=== PATIENT | female | born 2000 | race Caucasian/White ===

== ENCOUNTER 2018-12-21 19:45 | Emergency (ER) | payer SELFPAY ==
[2018-12-21 23:44] LABS: ABSOLUTE BASOPHILS # (AUTO) 0.1 10^3/uL (0.0-0.2); ABSOLUTE EOSINOPHILS # (AUTO) 0.1 10^3/uL (0.0-0.6); ABSOLUTE MONOCYTES (AUTO) 0.7 10^3/uL (0.1-1.4); ABSOLUTE NEUT (AUTO) 5.8 10^3/uL (1.7-8.2); BASOPHILS % (AUTO) 0.9 % (0-2); EOSINOPHILS % (AUTO) 1.3 % (0-6); HEMATOCRIT 40.3 % (36.0-47.0); LYMPHOCYTES % (AUTO) 22.8 % (13-45); MEAN CORPUSCULAR HEMOGLOBIN 29.7 pg (27.0-33.4); MEAN CORPUSCULAR HGB CONC 34.7 g/dL (32.0-36.0); MEAN CORPUSCULAR VOLUME 86 fl (80-97); MONOCYTES % (AUTO) 7.7 % (3-13); PLATELET COUNT 214 10^3/uL (150-450); RED BLOOD COUNT 4.71 10^6/uL (3.72-5.28); RED CELL DISTRIBUTION WIDTH 13.3 % (11.5-14.0); SEGMENTED NEUTROPHILS % (AUTO) 67.3 % (42-78); TOTAL CELLS COUNTED % (AUTO) 100 %; WHITE BLOOD COUNT 8.6 10^3/uL (4.0-10.5)
[2018-12-22] LABS: APPEARANCE,URINE CLEAR; BILIRUBIN,URINE NEGATIVE (NEGATIVE); COLOR,URINE COLORLESS; GLUCOSE, URINE NEGATIVE (NEGATIVE); KETONES,URINE NEGATIVE (NEGATIVE); LEUKOCYTE ESTERASE,URINE NEGATIVE (NEGATIVE); NITRITE,URINE NEGATIVE (NEGATIVE); PROTEIN,URINE NEGATIVE (NEGATIVE); URINE SPECIFIC GRAVITY 1.001; UROBILINOGEN,URINE NEGATIVE mg/dL (<2.0)
[2018-12-22 00:04] LABS: ALANINE AMINOTRANSFERASE 25 U/L (9-52); ALKALINE PHOSPHATASE 71 U/L (38-126); ANION GAP 13 (5-19); ASPARTATE AMINO TRANSFERASE 24 U/L (14-36); BILIRUBIN,DIRECT 0.2 mg/dL (0.0-0.4); BILIRUBIN,TOTAL 0.7 mg/dL (0.2-1.3); BLOOD UREA NITROGEN 8 mg/dL (7-20); CALCIUM 9.9 mg/dL (8.4-10.2); CARBON DIOXIDE 27 mmol/L (22-30); CHLORIDE 101 mmol/L (98-107); GLUCOSE 104 mg/dL (75-110); LIPASE 72.6 U/L (23-300); POTASSIUM 3.9 mmol/L (3.6-5.0); SODIUM 140.8 mmol/L (137-145); TOTAL PROTEIN 8.1 g/dL (6.3-8.2)
[2018-12-22] MEDS ORDERED: KETOROLAC TROMETHAMINE INJ/PF 30 MG/1 ML SDV IV ONE (02:05)
--- NOTE | 2018-12-22 02:05 | ER Document Report ---
ED GI/ - General Chief Complaint: Abdominal Pain/dizzy Stated Complaint: LEFT SIDE PAIN,DIZZYNESS Time Seen by Provider: 12/22/18 01:19 Notes: 18-year-old female with 1 day history of left-sided abdominal pain. Intermittent fever. No vaginal discharge. Sometimes the pain radiates to the left flank. Not vomiting at this time. No diarrhea. No significant lower pelvic pain. Denies any vaginal discharge or vaginal bleeding. TRAVEL OUTSIDE OF THE [place] IN LAST 30 DAYS: No - HPI Patient complains to provider of: Abdominal pain, Flank pain Onset: This morning Timing/Duration: Gradual Quality of pain: Achy Severity at maximum: Moderate Severity in ED: Moderate Location: LUQ, LLQ Vaginal bleeding (Compared to normal period): None Sexual history: Active Associated symptoms: None - Related Data Allergies/Adverse Reactions: No Known Allergies Allergy (Unverified 12/21/18 19:48) Past Medical History - General Information source: Patient - Social History Smoking Status: Never Smoker Frequency of alcohol use: None Drug Abuse: None Lives with: Spouse/Significant other Family History: Reviewed & Not Pertinent - Medical History Medical History: Negative Review of Systems - Review of Systems Notes: Constitutional: denies: Chills, Diaphoresis, Fever, Malaise, Weakness EENT: denies: Eye discharge, Blurred vision, Tearing, Double vision, Nose congestion, Nose discharge, Throat swelling, Mouth pain Cardiovascular: denies: Palpitations, Heart racing, Orthopnea, Dyspnea, Chest pain Respiratory: denies: Cough, Hurts to breathe, Wheezing, Shortness of breath Gastrointestinal: denies: Diarrhea, Nausea, Vomiting, Black stools, bright red blood in stool. Positive for abdominal pain Genitourinary: denies: Burning, Dysuria, Discharge, Frequency, Flank pain, Hematuria Musculoskeletal: denies: Joint pain, Joint swelling, Muscle pain, Muscle stiffness, back pain Hematologic/Lymphatic: denies: Anemia, Easy bleeding, Easy bruising, Blood clots Neurological/Psychological: denies: Confusion, Dementia, Depression, Loss of consciousness Skin: No lesions, no masses, no skin breakdown, no abscesses Physical Exam - Vital signs Vitals: Temp Pulse Resp BP Pulse Ox 99.9 F 89 18 108/72 99 12/21/18 19:57 12/21/18 19:57 12/21/18 19:57 12/21/18 19:57 12/21/18 19:57 Interpretation: Normal - General General appearance: Appears well, Alert - HEENT Head: Normocephalic, Atraumatic Eyes: Normal Pupils: PERRL - Respiratory Respiratory status: No respiratory distress Chest status: Nontender Breath sounds: Normal Chest palpation: Normal - Cardiovascular Rhythm: Regular Heart sounds: Normal auscultation Murmur: No - Abdominal Inspection: Normal Distension: No distension Bowel sounds: Normal Tenderness: Tender - Mild tenderness to palpation in the left upper and left lateral quadrant. No guarding or rebound. No periumbilical tenderness. No Tapia sign. No pain in McBurney's point. Organomegaly: No organomegaly - Genitourinary External exam: Normal. No: Vesicles Speculum exam: Normal Vaginal bleeding: None Bimanuel exam: Normal. No: Cervical motion tender, Adnexal mass, Adnexal tenderness, Uterus enlarged - Back Back: Normal, Nontender - Extremities General upper extremity: Normal inspection, Nontender, Normal color, Normal ROM, Normal temperature General lower extremity: Normal inspection, Nontender, Normal color, Normal ROM, Normal temperature, Normal weight bearing. No: Marla's sign - Neurological Neuro grossly intact: Yes Cognition: Normal Orientation: AAOx4 [place] Coma Scale Eye Opening: Spontaneous Armond Coma Scale Verbal: Oriented Armond Coma Scale Motor: Obeys Commands Armond Coma Scale Total: 15 Speech: Normal Motor strength normal: LUE, RUE, LLE, RLE Sensory: Normal - Psychological Associated symptoms: Normal affect, Normal mood - Skin Skin Temperature: Warm Skin Moisture: Dry Skin Color: Normal Course - Re-evaluation Re-evalutation: 12/22/18 03:24 Laboratory 12/21/18 12/21/18 12/21/18 23:18 23:25 23:25 WBC 8.6 RBC 4.71 Hgb 14.0 Hct 40.3 MCV 86 MCH 29.7 MCHC 34.7 RDW 13.3 Plt Count 214 Seg Neutrophils % 67.3 Lymphocytes % 22.8 Monocytes % 7.7 Eosinophils % 1.3 Basophils % 0.9 Absolute Neutrophils 5.8 Absolute Lymphocytes 2.0 Absolute Monocytes 0.7 Absolute Eosinophils 0.1 Absolute Basophils 0.1 Sodium 140.8 Potassium 3.9 Chloride 101 Carbon Dioxide 27 Anion Gap 13 BUN 8 Creatinine 0.64 Est GFR ( Amer) > 60 Est GFR (Non-Af Amer) > 60 Glucose 104 Calcium 9.9 Total Bilirubin 0.7 Direct Bilirubin 0.2 Neonat Total Bilirubin Not Reportable Neonat Direct Bilirubin Not Reportable Neonat Indirect Bili Not Reportable AST 24 ALT 25 Alkaline Phosphatase 71 Total Protein 8.1 Albumin 5.0 Lipase 72.6 Urine Color COLORLESS Urine Appearance CLEAR Urine pH 7.0 Ur Specific [place] 1.001 Urine Protein NEGATIVE Urine Glucose (UA) NEGATIVE Urine Ketones NEGATIVE Urine Blood SMALL H Urine Nitrite NEGATIVE Urine Bilirubin NEGATIVE Urine Urobilinogen NEGATIVE Ur Leukocyte Esterase NEGATIVE Urine WBC (Auto) 0 Urine RBC (Auto) 2 Urine Bacteria (Auto) TRACE Squamous Epi Cells Auto 3 Urine Ascorbic Acid NEGATIVE Urine HCG, Qual NEGATIVE 12/22/18 03:24 Well-appearing female in no significant distress. Fairly unremarkable pelvic exam and labs. Wet prep, GC and Chlamydia sent off but unlikely this represents PID as her pelvic exam looks fairly unremarkable. We will give her strict follow-up instructions about 24-hour follow-up as this could be an early appendicitis. Patient seems reasonable and compliant. We will discharge her at this time in stable condition. 12/22/18 06:21 - Vital Signs Vital signs: Temp Pulse Resp BP Pulse Ox 98.8 F 84 20 104/55 L 98 12/22/18 03:50 12/22/18 03:50 12/22/18 03:50 12/22/18 03:50 12/22/18 03:50 - Laboratory Result Diagrams: 12/21/18 23:25 12/21/18 23:25 Laboratory results interpreted by me: 12/21/18 23:18 Urine Blood SMALL H Discharge - Discharge Clinical Impression: Left sided abdominal pain Condition: Good Disposition: HOME, SELF-CARE Instructions: Observation for Appendicitis ([facility]) Additional Instructions: Nothing was seen that was significantly abnormal today. In the event that your symptoms are getting worse over the next 12-24 hours she should return immediat atiya. Times appendicitis can present like this and it takes close follow-up to make sure we are not missing something. You may take ibuprofen or Tylenol as instructed for pain. Prescriptions: Ibuprofen [Motrin 800 mg Tablet] 800 mg PO Q8H PRN 10 Days #30 tab PRN Reason: For Pain Scale 3-4 Forms: Return to Work
[2018-12-22 04:09] VITALS: BP 104/55
[2018-12-22 06:10] LABS: BACTERIA (WET MOUNT) 4+ BACTERIA SEEN; EPITHELIALS (WET MOUNT) 4+ EPITHELIALS SEEN; WBCS (WET MOUNT) 1+ WBCS SEEN
--- NOTE | 2018-12-23 21:02 | ER Document Report ---
Doctor's Note Notes: 12/23/18 20:56 Follow up phone call performed as it appeared that lab cancelled the GC/Ch probe from initial visit. Patient seen yesterday and treated by another provider and dx with "constipation". During f/u conversation at 1929 on 12/23 pt still reports pain in LLQ and felt a "pop" today with more pain. I have advised that she should return to the ED for repeat evaluation for dirty urine DNA probe for gc/chl and/or repeat pelvic exam and likely will need a more advanced imaging study such as pelvic U/S or CT. I have notified charge nurse at 1939 on 12/23 and have requested expedited work up if/when patient returns
== END 2018-12-22 03:50 | disposition home or self-care (01) ==
LOC: ER 19:45
DX: R10.9 Unspecified abdominal pain (principal); R42 Dizziness and giddiness; R50.9 Fever, unspecified
CPT/HCPCS: 99284; 96374; 36415; 87210; 83690; 85025; 81025; 80053; 81001; J1885

== ENCOUNTER 2018-12-22 16:13 | Emergency (ER) | payer SELFPAY ==
[2018-12-22] MEDS ORDERED: FENTANYL CITRATE INJ/PF 100 MCG/2 ML AMPUL IM ONE (16:24)
--- NOTE | 2018-12-22 16:26 | ER Document Report ---
ED Medical Screen (RME) - General Chief Complaint: Abdominal Pain Stated Complaint: ABDOMINAL PAIN Time Seen by Provider: 12/22/18 16:24 Mode of Arrival: Ambulatory Information source: Patient Notes: Chief complaint: abdominal pain: History of complain:( obtained from----patient) 18 years old female presents today with diffuse abdominal pain more so in the right lower quadrant and left lower quadrant. She was seen here yesterday and evaluated and discharged home. She presents again. No fever chills or vomiting. Denies any dysuria frequency. Yesterday's white count was normal as well as urine was normal. Urine was negative. She has periodic constipations with irregular bowel movement. Onset: Gradual Duration: Last few days Severity: Moderate crampy Quality: Crampy Context: Abdomen Exacerbating factor and relieving factors: REVIEW OF SYSTEMS: CONSTITUTIONAL : Denies fever, chills, or sweats. Denies recent illness. EENT: Denies eye, ear, throat, or mouth pain or symptoms. Denies nasal or sinus congestion or discharge. Denies throat, tongue, or mouth swelling or difficulty swallowing. CARDIOVASCULAR: Denies chest pain. Denies palpitations or racing or irregular heart beat. Denies ankle edema. RESPIRATORY: Denies cough, cold, or chest congestion. Denies shortness of breath, difficulty breathing, or wheezing. GASTROINTESTINAL: Denies distention. Denies nausea, vomiting, or diarrhea. Denies blood in vomitus, stools, or per rectum. Denies black, tarry stools. Denies constipation. GENITOURINARY: Denies difficulty urinating, painful urination, burning, frequency, blood in urine, or discharge. FEMALE GENITOURINARY: Denies vaginal bleeding, heavy or abnormal periods, irregular periods. Denies vaginal discharge or odor. MUSCULOSKELETAL: Denies back or neck pain or stiffness. Denies joint pain or swelling. SKIN: Denies rash, lesions or sores. HEMATOLOGIC : Denies easy bruising or bleeding. LYMPHATIC: Denies swollen, enlarged glands. NEUROLOGICAL: Denies confusion or altered mental status. Denies passing out or loss of consciousness. Denies dizziness or lightheadedness. Denies headache. Denies weakness or paralysis or loss of use of either side. Denies problems with gait or speech. Denies sensory loss, numbness, or tingling. Denies seizures. PSYCHIATRIC: Denies anxiety or stress. Denies depression, suicidal ideation, or homicidal ideation. ALL OTHER SYSTEMS REVIEWED AND NEGATIVE. PHYSICAL EXAMINATION: GENERAL: Well-appearing, well-nourished and in no acute distress. HEAD: Atraumatic, normocephalic. EYES: Pupils equal round and reactive to light, extraocular movements intact, conjunctiva are normal. ENT: Nares patent, oropharynx clear without exudates. Moist mucous membranes. NECK: Normal range of motion, supple without lymphadenopathy LUNGS: Breath sounds clear to auscultation bilaterally and equal. No wheezes rales or rhonchi. HEART: Regular rate and rhythm without murmurs ABDOMEN: Soft, diffuse abdominal tenderness noted. No rebound tenderness or guarding, nondistended abdomen. No guarding, no rebound. No masses appreciated. Female : deferred Musculoskeletal: Normal range of motion, no pitting or edema. No cyanosis. NEUROLOGICAL: Cranial nerves grossly intact. Normal speech, normal gait. Normal sensory, motor exams PSYCH: Normal mood, normal affect. SKIN: Warm, Dry, normal turgor, no rashes or lesions noted. Dictation was performed using [employer] voice recognition software TRAVEL OUTSIDE OF THE [place] IN LAST 30 DAYS: No - HPI Notes: 12/22/18 16:50 Dictated - Related Data Allergies/Adverse Reactions: No Known Allergies Allergy (Unverified 12/21/18 19:48) Past Medical History - Social History Cigarette use (# per day): No Frequency of alcohol use: None Drug Abuse: None Lives with: Family Family history: Reviewed & Not Pertinent Renal/ Medical History: Denies: Hx Peritoneal Dialysis Review of Systems - Review of Systems Notes: Dictated Physical Exam - Vital signs Vitals: Temp Pulse Resp BP Pulse Ox 99.5 F 96 16 107/57 L 97 12/22/18 16:20 12/22/18 16:20 12/22/18 16:20 12/22/18 16:20 12/22/18 16:20 - Notes Notes: Dictated Course - Vital Signs Vital signs: Temp Pulse Resp BP Pulse Ox 99.5 F 96 16 107/57 L 97 12/22/18 16:20 12/22/18 16:20 12/22/18 16:22 12/22/18 16:20 12/22/18 16:20 - Laboratory Result Diagrams: 12/22/18 16:55 12/22/18 16:55 - Diagnostic Test Radiology reviewed: Image reviewed - KUB showed large amount of fecal material, Reports reviewed - Reported by radiologist as Normal Doctor's Discharge - Discharge Clinical Impression: Constipation by delayed colonic transit Abdominal pain Qualifiers: Abdominal location: generalized Qualified Code(s): R10.84 - Generalized abdominal pain Condition: Fair Disposition: HOME, SELF-CARE Instructions: Bulk Laxatives, Constipation ([facility]) Prescriptions: Ketorolac Tromethamine [Toradol 10 mg Tablet] 10 mg PO Q6HP PRN #14 tablet PRN Reason: Dicyclomine HCl [Bentyl 10 mg Capsule] 1 cap PO TID #30 cap Lactulose [Cephulac Syrup 20 gm/30 ml Udcup] 20 gm PO TID #120 udc
[2018-12-22] MEDS ORDERED: KETOROLAC TROMETHAMINE 10 MG TABLET PO ONE (16:47)
[2018-12-22] MEDS ORDERED: DICYCLOMINE HCL 20 MG TABLET PO ONE (16:47)
--- NOTE | 2018-12-22 16:56 | RADIOLOGY REPORT (SQ) ---
EXAM DESCRIPTION: KUB/ABDOMEN (SINGLE VIEW) COMPLETED DATE/TIME: 12/22/2018 4:49 pm REASON FOR STUDY: Abdominal pain COMPARISON: None. NUMBER OF VIEWS: One view. TECHNIQUE: Supine radiographic image of the abdomen acquired. LIMITATIONS: None. FINDINGS: BOWEL GAS PATTERN: Normal bowel gas pattern. No dilated loops. CALCIFICATIONS: No suspicious calcifications. SOFT TISSUES: No gross mass or suggestion of organomegaly. HARDWARE: None in the abdomen. BONES: No acute fracture. No worrisome bone lesions. OTHER: No other significant finding. IMPRESSION: NO RADIOGRAPHIC EVIDENCE FOR ACUTE ABDOMINAL DISEASE. TECHNICAL DOCUMENTATION: JOB ID: [id number] [employer]- All Rights Reserved Reading location - IP/workstation name: [email or web address]
[2018-12-22 17:23] LABS: ABSOLUTE BASOPHILS # (AUTO) 0.1 10^3/uL (0.0-0.2); ABSOLUTE EOSINOPHILS # (AUTO) 0.1 10^3/uL (0.0-0.6); ABSOLUTE LYMPHOCYTES (AUTO) 1.1 10^3/uL (0.5-4.7); ABSOLUTE MONOCYTES (AUTO) 0.6 10^3/uL (0.1-1.4); ABSOLUTE NEUT (AUTO) 4.3 10^3/uL (1.7-8.2); EOSINOPHILS % (AUTO) 1.5 % (0-6); HEMATOCRIT 38.4 % (36.0-47.0); HEMOGLOBIN 13.3 g/dL (12.0-15.5); LYMPHOCYTES % (AUTO) 17.8 % (13-45); MEAN CORPUSCULAR HEMOGLOBIN 29.3 pg (27.0-33.4); MEAN CORPUSCULAR HGB CONC 34.6 g/dL (32.0-36.0); MEAN CORPUSCULAR VOLUME 85 fl (80-97); MONOCYTES % (AUTO) 10.1 % (3-13); PLATELET COUNT 207 10^3/uL (150-450); RED BLOOD COUNT 4.54 10^6/uL (3.72-5.28); RED CELL DISTRIBUTION WIDTH 13.3 % (11.5-14.0); SEGMENTED NEUTROPHILS % (AUTO) 69.6 % (42-78); TOTAL CELLS COUNTED % (AUTO) 100 %; WHITE BLOOD COUNT 6.1 10^3/uL (4.0-10.5)
[2018-12-22 17:44] LABS: ALANINE AMINOTRANSFERASE 21 U/L (9-52); ALBUMIN 4.7 g/dL (3.5-5.0); ALKALINE PHOSPHATASE 63 U/L (38-126); ANION GAP 9 (5-19); ASPARTATE AMINO TRANSFERASE 26 U/L (14-36); BILIRUBIN,DIRECT 0.4 mg/dL (0.0-0.4); BILIRUBIN,TOTAL 0.9 mg/dL (0.2-1.3); BLOOD UREA NITROGEN 12 mg/dL (7-20); CALCIUM 9.8 mg/dL (8.4-10.2); CARBON DIOXIDE 26 mmol/L (22-30); CHLORIDE 105 mmol/L (98-107); GLUCOSE 81 mg/dL (75-110); POTASSIUM 4.3 mmol/L (3.6-5.0); SODIUM 140.2 mmol/L (137-145); TOTAL PROTEIN 7.4 g/dL (6.3-8.2)
[2018-12-22 18:53] VITALS: BP 88/55
== END 2018-12-22 19:00 | disposition home or self-care (01) ==
LOC: ER 16:13
DX: K59.01 Slow transit constipation (principal); R10.84 Generalized abdominal pain
CPT/HCPCS: 99284; 36415; 85025; 80053; 74018; J3490 ×2

== ENCOUNTER 2018-12-23 21:01 | Emergency (ER) | payer SELFPAY ==
[2018-12-23] MEDS ORDERED: ONDANSETRON ODT 4 MG TAB (6 TAB/ER DISP) PO PRN (21:08)
[2018-12-23] MEDS ORDERED: HYDROCODONE/ACETAMINOPHEN 5-325 MG TABLET PO PRN (21:08)
[2018-12-23] MEDS ORDERED: NORMAL SALINE 1000 ML 1,000 ML IV ONE (21:57)
--- NOTE | 2018-12-23 23:58 | RADIOLOGY REPORT (SQ) ---
US PELVIS HISTORY: Pelvic pain. COMPARISON: None. TECHNIQUE: Grayscale, color Doppler, and spectral Doppler ultrasound images of the pelvis were obtained. FINDINGS: The uterus is anteverted and measures 7.0 x 4.7 x 3.6 cm. The endometrium is 2 mm in thickness. Cervix measures 3 cm in length. The right ovary measures 4.0 x 2.2 x 2.9 cm and contains a 2.3 x 1.8 cm anechoic cyst. The left ovary measures 3.8 x 2.9 x 2.5 cm and contains a 3.1 x 2.4 cm anechoic cyst. Normal color Doppler blood flow is seen in both ovaries. Small amount of free fluid surrounding the left ovary. IMPRESSION: Bilateral simple appearing ovarian cysts, measuring 2.2 cm on the right and 3.1 cm on the left. No follow-up imaging is recommended.
[2018-12-24] MEDS ORDERED: NORMAL SALINE 1000 ML 1,000 ML IV ONE (00:05)
[2018-12-24] MEDS ORDERED: MORPHINE SULFATE 10 MG/ML INJ IV ONE (00:05)
[2018-12-24] MEDS ORDERED: ONDANSETRON HCL INJ/PF 4 MG/2 ML SDV IV ONE (00:05)
[2018-12-24 00:20] LABS: ABSOLUTE BASOPHILS # (AUTO) 0.1 10^3/uL (0.0-0.2); ABSOLUTE EOSINOPHILS # (AUTO) 0.1 10^3/uL (0.0-0.6); ABSOLUTE LYMPHOCYTES (AUTO) 1.5 10^3/uL (0.5-4.7); ABSOLUTE MONOCYTES (AUTO) 0.8 10^3/uL (0.1-1.4); ABSOLUTE NEUT (AUTO) 4.9 10^3/uL (1.7-8.2); BASOPHILS % (AUTO) 0.8 % (0-2); EOSINOPHILS % (AUTO) 1.2 % (0-6); HEMATOCRIT 35.9 % (36.0-47.0); HEMOGLOBIN 12.5 g/dL (12.0-15.5); LYMPHOCYTES % (AUTO) 20.5 % (13-45); MEAN CORPUSCULAR HEMOGLOBIN 29.5 pg (27.0-33.4); MEAN CORPUSCULAR HGB CONC 34.8 g/dL (32.0-36.0); MEAN CORPUSCULAR VOLUME 85 fl (80-97); MONOCYTES % (AUTO) 11.1 % (3-13); PLATELET COUNT 214 10^3/uL (150-450); RED BLOOD COUNT 4.24 10^6/uL (3.72-5.28); RED CELL DISTRIBUTION WIDTH 13.4 % (11.5-14.0); SEGMENTED NEUTROPHILS % (AUTO) 66.4 % (42-78); TOTAL CELLS COUNTED % (AUTO) 100 %; WHITE BLOOD COUNT 7.4 10^3/uL (4.0-10.5)
[2018-12-24 00:39] LABS: ANION GAP 12 (5-19); BLOOD UREA NITROGEN 12 mg/dL (7-20); CALCIUM 9.4 mg/dL (8.4-10.2); CARBON DIOXIDE 24 mmol/L (22-30); CHLORIDE 104 mmol/L (98-107); GLUCOSE 83 mg/dL (75-110); POTASSIUM 4.2 mmol/L (3.6-5.0); SODIUM 139.6 mmol/L (137-145)
[2018-12-24 02:43] LABS: APPEARANCE,URINE CLEAR; BILIRUBIN,URINE NEGATIVE (NEGATIVE); COLOR,URINE STRAW; GLUCOSE, URINE NEGATIVE (NEGATIVE); KETONES,URINE TRACE mg/dL (NEGATIVE); LEUKOCYTE ESTERASE,URINE NEGATIVE (NEGATIVE); NITRITE,URINE NEGATIVE (NEGATIVE); PROTEIN,URINE NEGATIVE (NEGATIVE); URINE SPECIFIC GRAVITY 1.004; UROBILINOGEN,URINE NEGATIVE mg/dL (<2.0)
--- NOTE | 2018-12-24 03:22 | RADIOLOGY REPORT (SQ) ---
EXAM DESCRIPTION: CT ABDOMEN PELVIS WITH IV CONTRAST COMPLETED DATE/TME: 12/24/2018 00:00 CLINICAL HISTORY: 18 years, Female, RLQ pain Comparison: None TECHNIQUE: Contiguous axial CT images of the abdomen and pelvis were obtained. Sagittal and coronal reformats were reviewed. This exam was performed according to our departmental dose-optimization program, which includes automated exposure control, adjustment of the mA and/or kV according to patient size and/or use of iterative reconstruction technique. FINDINGS: Lung bases: Patchy alveolar opacity in the right lower lobe. The left lung bases clear. Liver:Unremarkable. No focal liver lesion. Gallbladder:Unremarkable. No gallstones. No gallbladder wall thickening or pericholecystic fluid. Spleen:Unremarkable Pancreas: Pancreas is unremarkable. Adrenal glands:Within normal limits. Kidneys/ureters:Within normal limits Stomach/small bowel/colon: Stomach is unremarkable. Small bowel is unremarkable. Colon is unremarkable. Appendix: No evidence of appendicitis. Peritoneum: No free fluid. Vascular structures: within normal limits Lymph nodes: No abnormal lymph nodes. Bladder:Unremarkable. Pelvic organs: Small cystic changes are present in both ovaries. Bones: No acute osseous abnormality. Soft tissues: Unremarkable.. IMPRESSION: Normal appendix. Alveolar opacities in the right lower lobe concerning for pneumonia.
[2018-12-24] MEDS ORDERED: CEFTRIAXONE 1 GM/D5W RTU 1 GM/50 ML RTUPB IV ONE (03:50)
[2018-12-24] MEDS ORDERED: AZITHROMYCIN 1 GM SUSP PACKET PO ONE (03:51)
[2018-12-24] MEDS ORDERED: KETOROLAC TROMETHAMINE INJ/PF 30 MG/1 ML SDV IV ONE (03:52)
--- NOTE | 2018-12-24 03:57 | ER Document Report ---
ED General - General Chief Complaint: Abdominal Pain Stated Complaint: DIZZINESS/ABDOMINAL PAIN Time Seen by Provider: 12/23/18 22:41 TRAVEL OUTSIDE OF THE [place] IN LAST 30 DAYS: No - HPI Patient complains to provider of: Abdominal pain Notes: Patient coming in for now a 3-4-day history of lower abdominal pain. Patient was seen the last 2 days in the ER. Last visit was diagnosed with constipation patient states that he relieve her abdominal pain and using medication as presc ribed. Patient denies any fevers denies any recent travel denies any trauma denies any vaginal discharge. Patient previous visits notes were reviewed. Laboratory studies are also reviewed. Upon my evaluation patient looks unwell states also having some slight cough no production. Patient denies any chest pain dysuria - Related Data Allergies/Adverse Reactions: No Known Allergies Allergy (Verified 12/22/18 18:54) Past Medical History - Social History Smoking Status: Unknown if Ever Smoked Family History: Reviewed & Not Pertinent Renal/ Medical History: Denies: Hx Peritoneal Dialysis Review of Systems - Review of Systems Constitutional: No symptoms reported EENT: No symptoms reported Cardiovascular: No symptoms reported Respiratory: No symptoms reported Gastrointestinal: Abdominal pain Genitourinary: No symptoms reported Female Genitourinary: No symptoms reported Musculoskeletal: No symptoms reported Skin: No symptoms reported Hematologic/Lymphatic: No symptoms reported Neurological/Psychological: No symptoms reported -: Yes All other systems reviewed and negative Physical Exam - Vital signs Vitals: Temp Pulse Resp BP Pulse Ox 100.4 F 102 H 16 115/62 98 12/23/18 21:09 12/23/18 21:09 12/23/18 21:09 12/23/18 21:09 12/23/18 21:09 Interpretation: Normal - General General appearance: Appears well, Alert - HEENT Head: Normocephalic, Atraumatic Eyes: Normal Pupils: PERRL - Respiratory Respiratory status: No respiratory distress Chest status: Nontender Breath sounds: Normal Chest palpation: Normal - Cardiovascular Rhythm: Regular Heart sounds: Normal auscultation Murmur: No - Abdominal Inspection: Normal Distension: No distension Bowel sounds: Normal Tenderness: Tender - Patient with right lower quadrant tenderness with guarding no rebound Organomegaly: No organomegaly - Back Back: Normal, Nontender - Extremities General upper extremity: Normal inspection, Nontender, Normal color, Normal ROM, Normal temperature General lower extremity: Normal inspection, Nontender, Normal color, Normal ROM, Normal temperature, Normal weight bearing. No: Marla's sign - Neurological Neuro grossly intact: Yes Cognition: Normal Orientation: AAOx4 [place] Coma Scale Eye Opening: Spontaneous [place] Coma Scale Verbal: Oriented [place] Coma Scale Motor: Obeys Commands Armond Coma Scale Total: 15 Speech: Normal Motor strength normal: LUE, RUE, LLE, RLE Sensory: Normal - Psychological Associated symptoms: Normal affect, Normal mood - Skin Skin Temperature: Warm Skin Moisture: Dry Skin Color: Normal Course - Re-evaluation Re-evalutation: 12/24/18 04:08 Patient continues to have a leukocytosis however significant tenderness on her abdominal examination. Ultrasound shows bilateral ovarian cyst however patient continues to have more right lower quadrant and left lower quadrant tenderness therefore CT scan was performed. 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 Because of the CT finding an obvious consolidation in the lungs will start the patient on antibiotics Rocephin and azithromycin was given here. Gonorrhea and Chlamydia testing are still pending. No signs of ovarian torsion possibility of the pain coming from the ovarian cyst do recommend the patient follow-up with her primary care physician return to the ER feeling worse. Patient agrees with treatment will be discharged - Vital Signs Vital signs: Temp Pulse Resp BP Pulse Ox 98.2 F 75 16 88/37 L 96 12/24/18 01:35 12/24/18 01:35 12/24/18 01:35 12/24/18 01:35 12/24/18 01:35 - Laboratory Result Diagrams: 12/24/18 00:01 12/24/18 00:01 Laboratory results interpreted by me: 12/24/18 12/24/18 00:01 02:31 Hct 35.9 L Urine Ketones TRACE H Discharge - Discharge Clinical Impression: Bilateral ovarian cysts Abdominal pain Qualifiers: Abdominal location: lower abdomen, unspecified Qualified Code(s): R10.30 - Lower abdominal pain, unspecified Pneumonia Qualifiers: Pneumonia type: due to unspecified organism Laterality: right Lung location: middle lobe of lung Qualified Code(s): J18.1 - Lobar pneumonia, unspecified organism Condition: Good Disposition: HOME, SELF-CARE Instructions: Abdominal Pain ([facility]), Ovarian Cyst ([facility]), Pneumonia ([facility]) Additional Instructions: Your ultrasound today shows bilateral ovarian cysts which can be causing your abdominal pain. Your CT scan does not show any signs of an acute appendicitis or any critical pathology but does show signs of a developing pneumonia on the right side of your lungs. We will start you on antibiotics azithromycin for this I would highly recommend follow-up with your primary care physician in the next 5 days for reevaluation. Prescriptions: Azithromycin [Zithromax] 250 mg PO DAILY #4 tablet Forms: Return to Work
[2018-12-24 04:23] LABS: CHLAM PCR NOT DETECTED (NOT DETECT); GON PCR NOT DETECTED (NOT DETECT)
[2018-12-24 04:52] VITALS: BP 119/63
== END 2018-12-24 04:57 | disposition home or self-care (01) ==
LOC: ER 21:01
DX: N83.202 Unspecified ovarian cyst, left side (principal); N83.201 Unspecified ovarian cyst, right side; J18.1 Lobar pneumonia, unspecified organism; K59.00 Constipation, unspecified
CPT/HCPCS: 99284; 96361; 96375; 96365; 36415; 84703; 85025; 80048; 81001; 87491; 87591; 76856; 93976; 74177; Q0144; J1885; J2270; J2405; J7030; J0696